=== PATIENT | male | born 1960 | race Caucasian/White ===

== ENCOUNTER 2016-05-11 21:04 | Emergency (ER) | payer OTHER ==
[~2016-05-11] VITALS: Ht 175.3 cm; Wt 75.0 kg
[~2016-05-11 21:04] MED LIST: ASPI81 PO; CEPH500C3 PO; CITA20 PO; NALT50TA PO; OMEP20TA39 PO; TAB-TAB PO
[2016-05-11 21:17] VITALS: BP 137/93; PULSE 129; RESP 20; TEMP 98.4; O2SAT 95
[2016-05-11] MEDS ORDERED: OMEP20CA2 (21:23)
[2016-05-11] MEDS ORDERED: FOLI5CAP PO (21:23)
[2016-05-11] MEDS ORDERED: ASPI81CH CHEW (21:23)
[2016-05-11] MEDS ORDERED: BLOOD THINNER (21:23)
[2016-05-11] MEDS ORDERED: NALT50TA3 PO (21:23)
[2016-05-11 21:40] VITALS: PULSE 101
[2016-05-11] MEDS ORDERED: SODIUM CHLOR 0.9% 1000 ML INJ 1,000 ML IV ONE (21:45)
[2016-05-11 22:20] LABS: AUTOMATED NEUTROPHIL # 2.2 TH/MM3 (1.8-7.7); EOSINOPHIL % 0.9 % (0.0-4.0); HEMATOCRIT 36.1 % (39.0-51.0); HEMO FLAGS DIFF FINAL; LYMPH % 31.2 % (9.0-44.0); LYMPHOCYTE # 1.2 TH/MM3 (1.0-4.8); MEAN CELL VOLUME 94.8 FL (80.0-100.0); MEAN CORPUSCULAR HEMOGLOBIN 33.1 PG (27.0-34.0); MONO % 11.5 % (0.0-8.0); NEUT % 55.4 % (16.0-70.0); PLATELET COUNT 146 TH/MM3 (150-450); RED CELL DISTRIBUTION WIDTH 14.1 % (11.6-17.2)
--- NOTE | 2016-05-11 22:39 | PD ---
HPI Chief Complaint: Psychiatric Symptoms Time Seen by Provider: 22:28 Travel History International Travel<30 days: No Contact w/Intl Traveler<30days: No Traveled to known affect area: No History of Present Illness HPI Patient is a 56-year-old male brought into the emergency Department under Lemus act for suicidal ideations. Patient states he was on the phone with his sister who became concerned about him subsequently calling the [place] [employer]. When the police arrived at the home he was staying in with his brother he did mention to them that he had thought about jumping off a bridge in [place]. Denies any previous suicide attempts. He does admit that he is getting from his and this is caused him stress. He states he' s been clean from alcohol for 2 years but did drink about 16 ounces of vodka today. PFSH Past Medical History Hx Anticoagulant Therapy: Yes ADD: Yes Cancer: No Cardiomyopathy: Yes (BICUSIP AORTIC VALVE) Cardiovascular Problems: Yes (aortic VALVE REPLACEMENT secondary to aortic stenosis) Diabetes: No Diminished Hearing: No Diverticulitis: Yes Endocrine: No Gastrointestinal Disorders: Yes (DIVERTICULITIES,ABDOMENAL PAIN,REFLUX) GERD: Yes Genitourinary: No Hepatitis: No Hiatal Hernia: No Hypertension: No Immune Disorder: No Implanted Vascular Access Dvce: No Medical other: No Musculoskeletal: No Neurologic: No Reproductive: No Respiratory: No Immunizations Current: Yes Thyroid Disease: No Influenza Vaccination: No Past Surgical History Abdominal Surgery: Yes (HERNIA) AICD: No Cardiac Surgery: Yes (AORTIC VALVE REPLACEMENT) Joint Replacement: No Pacemaker: No Tonsillectomy: Yes Other Surgery: Yes (ROTATOR CUFF REPAIR) Social History Alcohol Use: No (HX OF) Tobacco Use: Yes (1 PPD ) Substance Use: No Allergies-Medications (Allergen,Severity, Reaction): Coded Allergies: *MDRO Multi-Drug Resistant Organism (Verified Adverse Reaction, Unknown, ) MRSA PCR positive 04/08/2015 Reported Meds & Prescriptions Reported Meds & Active Scripts Active Reported [Blood Thinner] Naltrexone (Naltrexone HCl) 50 Mg Tab 25 Mg PO DAILY Folic Acid 5 Mg Cap 5 Mg PO Omeprazole 20 Mg Cap Aspirin 81 Mg Chew 81 Mg CHEW DAILY Review of Systems Except as stated in HPI: all other systems reviewed are Neg Psychiatric: Positive: Depression, Substance Abuse Physical Exam Narrative GENERAL: Well-developed, well-nourished, alert male. Resting comfortably in no acute distress. SKIN: Warm and dry. HEAD: Atraumatic. Normocephalic. EYES: Pupils equal and round. No scleral icterus. No injection or drainage. ENT: No nasal bleeding or discharge. Mucous membranes pink and moist. NECK: Trachea midline. No JVD. CARDIOVASCULAR: Tachycardic. 2/6 systolic murmur appreciated. RESPIRATORY: No accessory muscle use. Clear to auscultation. Breath sounds equal bilaterally. GASTROINTESTINAL: Abdomen soft, non-tender, nondistended. Hepatic and splenic margins not palpable. MUSCULOSKELETAL: No obvious deformities. No clubbing. No cyanosis. No edema. NEUROLOGICAL: Awake and alert. No obvious cranial nerve deficits. Motor grossly within normal limits. Normal speech. PSYCHIATRIC: Appropriate mood and affect; insight and judgment normal. Data Data Last Documented VS Vital Signs Date Time Temp Pulse Resp B/P Pulse Ox O2 Delivery O2 Flow Rate FiO2 05/12/16 08:04 97 18 05/12/16 06:05 146/97 96 Room Air 05/11/16 21:17 98.4 Orders Complete Blood Count With Diff (05/11/16 21:36) Comprehensive Metabolic Panel (05/11/16 21:36) Psych Screen (05/11/16 21:36) Drug Screen, Random Urine (05/11/16 21:36) Alcohol (Ethanol) (05/11/16 21:36) Magnesium (Mg) (05/11/16 21:36) Salicylates (Aspirin) (05/11/16 21:36) Tylenol (Acetaminophen) (05/11/16 21:36) Iv Access Insert/Monitor (05/11/16 21:36) Sodium Chlor 0.9% 1000 Ml Inj (Ns 1000 M (05/11/16 21:45) Potassium Chloride (Kcl) (05/11/16 23:45) Diet Regular Basic (05/12/16 Breakfast) Labs Laboratory Tests Test 05/11/16 22:00 White Blood Count 4.0 TH/MM3 Red Blood Count 3.80 MIL/MM3 Hemoglobin 12.6 GM/DL Hematocrit 36.1 % Mean Corpuscular Volume 94.8 FL Mean Corpuscular Hemoglobin 33.1 PG Mean Corpuscular Hemoglobin 35.0 % Concent Red Cell Distribution Width 14.1 % Platelet Count 146 TH/MM3 Mean Platelet Volume 7.7 FL Neutrophils (%) (Auto) 55.4 % Lymphocytes (%) (Auto) 31.2 % Monocytes (%) (Auto) 11.5 % Eosinophils (%) (Auto) 0.9 % Basophils (%) (Auto) 1.0 % Neutrophils # (Auto) 2.2 TH/MM3 Lymphocytes # (Auto) 1.2 TH/MM3 Monocytes # (Auto) 0.5 TH/MM3 Eosinophils # (Auto) 0.0 TH/MM3 Basophils # (Auto) 0.0 TH/MM3 CBC Comment DIFF FINAL Differential Comment Sodium Level 142 MEQ/L Potassium Level 3.1 MEQ/L Chloride Level 101 MEQ/L Carbon Dioxide Level 28.6 MEQ/L Anion Gap 12 MEQ/L Blood Urea Nitrogen 15 MG/DL Creatinine 0.90 MG/DL Estimat Glomerular Filtration 87 ML/MIN Rate Random Glucose 81 MG/DL Calcium Level 9.2 MG/DL Magnesium Level 1.9 MG/DL Total Bilirubin 0.5 MG/DL Aspartate Amino Transf 146 U/L (AST/SGOT) Alanine Aminotransferase 94 U/L (ALT/SGPT) Alkaline Phosphatase 76 U/L Total Protein 7.1 GM/DL Albumin 3.8 GM/DL Salicylates Level 3.2 MG/DL Urine Opiates Screen POS Acetaminophen Level LESS THAN 2.0 MCG/ML Urine Barbiturates Screen NEG Urine Amphetamines Screen NEG Urine Benzodiazepines Screen NEG Urine Cocaine Screen NEG Urine Cannabinoids Screen NEG Ethyl Alcohol Level 198 MG/DL MDM Medical Decision Making Medical Screen Exam Complete: Yes Emergency Medical Condition: Yes Interpretation(s) Vital Signs Date Time Temp Pulse Resp B/P Pulse Ox O2 Delivery O2 Flow Rate FiO2 05/11/16 21:40 101 05/11/16 21:17 98.4 129 20 137/93 95 Differential Diagnosis Electrolyte abnormality versus acute intoxication versus depression versus suicidal ideations versus cardiac arrhythmia versus other Narrative Course Patient is a 56-year-old male brought in under Lemus act for suicidal ideations. Patient is currently denying such. He does admit to drinking 16 ounces of vodka today, he denies any consistent alcohol or drug use. Tachycardic on arrival, his heart rate has trended down to the low 100s. Labs and IV fluids ordered, psychiatric screen pending. Care of patient transferred to Kenan RSOAS who will determine patient's disposition. Donna Mcnamara May 11, 2016 22:39
[2016-05-11 22:41] LABS: AMPHETAMINE, URINE NEG (NEG); BARBITURATES, URINE NEG (NEG); COCAINE, URINE NEG (NEG)
[2016-05-11 23:00] LABS: ANION GAP 12 MEQ/L (5-15)
[2016-05-11 23:04] LABS: ACETAMINOPHEN LESS THAN 2.0 MCG/ML (10.0-30.0); ALKALINE PHOSPHATASE 76 U/L (45-117); ALT (GPT) 94 U/L (12-78); AST (GOT) 146 U/L (15-37); BICARBONATE 28.6 MEQ/L (21.0-32.0); BLOOD UREA NITROGEN 15 MG/DL (7-18); CHLORIDE 101 MEQ/L (98-107); GLOMERULAR FILTRATION RATE 87 ML/MIN (>89); MAGNESIUM 1.9 MG/DL (1.5-2.5); POTASSIUM 3.1 MEQ/L (3.5-5.1); SODIUM (NA) 142 MEQ/L (136-145); TOTAL BILIRUBIN ADULT 0.5 MG/DL (0.2-1.0)
--- NOTE | 2016-05-11 23:37 | PD ---
Physical Exam Narrative Patient was signed out to me by Donna BOND, pending labs. Please see her documentation for full H&P. Data Data Last Documented VS Vital Signs Date Time Temp Pulse Resp B/P Pulse Ox O2 Delivery O2 Flow Rate FiO2 05/11/16 21:40 101 05/11/16 21:17 98.4 20 137/93 95 Orders Complete Blood Count With Diff (05/11/16 21:36) Comprehensive Metabolic Panel (05/11/16 21:36) Psych Screen (05/11/16 21:36) Drug Screen, Random Urine (05/11/16 21:36) Alcohol (Ethanol) (05/11/16 21:36) Magnesium (Mg) (05/11/16 21:36) Salicylates (Aspirin) (05/11/16 21:36) Tylenol (Acetaminophen) (05/11/16 21:36) Iv Access Insert/Monitor (05/11/16 21:36) Sodium Chlor 0.9% 1000 Ml Inj (Ns 1000 M (05/11/16 21:45) Potassium Chloride (Kcl) (05/11/16 23:45) Labs Laboratory Tests Test 05/11/16 22:00 White Blood Count 4.0 TH/MM3 Red Blood Count 3.80 MIL/MM3 Hemoglobin 12.6 GM/DL Hematocrit 36.1 % Mean Corpuscular Volume 94.8 FL Mean Corpuscular Hemoglobin 33.1 PG Mean Corpuscular Hemoglobin 35.0 % Concent Red Cell Distribution Width 14.1 % Platelet Count 146 TH/MM3 Mean Platelet Volume 7.7 FL Neutrophils (%) (Auto) 55.4 % Lymphocytes (%) (Auto) 31.2 % Monocytes (%) (Auto) 11.5 % Eosinophils (%) (Auto) 0.9 % Basophils (%) (Auto) 1.0 % Neutrophils # (Auto) 2.2 TH/MM3 Lymphocytes # (Auto) 1.2 TH/MM3 Monocytes # (Auto) 0.5 TH/MM3 Eosinophils # (Auto) 0.0 TH/MM3 Basophils # (Auto) 0.0 TH/MM3 CBC Comment DIFF FINAL Differential Comment Sodium Level 142 MEQ/L Potassium Level 3.1 MEQ/L Chloride Level 101 MEQ/L Carbon Dioxide Level 28.6 MEQ/L Anion Gap 12 MEQ/L Blood Urea Nitrogen 15 MG/DL Creatinine 0.90 MG/DL Estimat Glomerular Filtration 87 ML/MIN Rate Random Glucose 81 MG/DL Calcium Level 9.2 MG/DL Magnesium Level 1.9 MG/DL Total Bilirubin 0.5 MG/DL Aspartate Amino Transf 146 U/L (AST/SGOT) Alanine Aminotransferase 94 U/L (ALT/SGPT) Alkaline Phosphatase 76 U/L Total Protein 7.1 GM/DL Albumin 3.8 GM/DL Salicylates Level 3.2 MG/DL Urine Opiates Screen POS Acetaminophen Level LESS THAN 2.0 MCG/ML Urine Barbiturates Screen NEG Urine Amphetamines Screen NEG Urine Benzodiazepines Screen NEG Urine Cocaine Screen NEG Urine Cannabinoids Screen NEG Ethyl Alcohol Level 198 MG/DL MDM Supervised Visit with PIYUSH: No Narrative Course Patient was seen and examined. Labs were obtained and reviewed. Patient potassium was replaced orally. Patient medically cleared for further treatment and evaluation by psych. Final disposition per psych. Diagnosis Primary Impression: Alcohol intoxication Qualified Code: F10.120 - Alcohol intoxication, uncomplicated Additional Impression: Hypokalemia Condition: Stable Madhav Tafoya May 11, 2016 23:37
[2016-05-11] MEDS ORDERED: POTASSIUM CHLORIDE 20 MEQ CONTROLLED RELEASE TAB PO ONE (23:45)
[2016-05-12 02:46] VITALS: BP 122/78; PULSE 103; RESP 18; O2SAT 97
[2016-05-12 06:05] VITALS: BP 146/97; PULSE 97; RESP 18; O2SAT 96
--- NOTE | 2016-05-12 09:48 | PD ---
History of Present Illness Chief Complaint: Psychiatric Symptoms Time Seen by Provider: 09:30 Travel History International Travel<30 Days: No Contact w/Intl Traveler<30days: No Known affected area: No Legal Status Legal Status: [employer] Act History of Present Illness: History of Present Illness HPI Patient is a 56-year-old male with no previous psychiatric history who presents to D under Lemus act initiated by DIPESH . As per the report " Grupo is going thru a divorce and mentally unstable. He advised he was thinking about jumping off a bridge to kill himself". Patient presents with BAL of 198 and reports that he has been drinking vodka for the past 2 days after a 2 year period of sobriety. He goes on to say that in the past 10 days he from his and was living at a hotel until his credit card was maxed. he then moved in with his brother who has CP and he had some disagreements with his siblings regarding the care of the brother who has CP. He minimizes his drinking at the time and states that when the police asked him how he was feeling " I said I could just jump off a bridge. The minute I said it I wanted to take it back because I did not mean it. It was an off the cuff comment". The patient has been monitored in [facility] and as per nursing report has presented no behavioral concerns and no suicidality. As per record review no previous contact with [facility] psychiatry dept. This morning he is awake, alert and oriented. dressed in [facility]. He is clinically sober and there is no symptoms of withdrawal. Speech is clear and logical. There is no indication of any thought content or process disturbance. Mood is euthymic. No leroy. He relates his recent difficulties with his marriage but is seeing a therapist once a week as well as seeing an reimbursement specialist. He denies any suicidal or homicidal ideation, intent or plan. He is future oriented. States " I have a granddaughter that I love and my youngest son is having a baby as well soon. I wouldn't do anything stupid. PFSH Past Medical History Hx Anticoagulant Therapy: Yes ADD: Yes Cancer: No Cardiomyopathy: Yes (BICUSIP AORTIC VALVE) Cardiovascular Problems: Yes (aortic VALVE REPLACEMENT secondary to aortic stenosis) Diabetes: No Diminished Hearing: No Diverticulitis: Yes Endocrine: No Gastrointestinal Disorders: Yes (DIVERTICULITIES,ABDOMENAL PAIN,REFLUX) GERD: Yes Genitourinary: No Hepatitis: No Hiatal Hernia: No Hypertension: No Immune Disorder: No Implanted Vascular Access Dvce: No Medical other: No Musculoskeletal: No Neurologic: No Reproductive: No Respiratory: No Immunizations Current: Yes Thyroid Disease: No Influenza Vaccination: No Past Surgical History Abdominal Surgery: Yes (HERNIA) AICD: No Cardiac Surgery: Yes (AORTIC VALVE REPLACEMENT) Joint Replacement: No Pacemaker: No Tonsillectomy: Yes Other Surgery: Yes (ROTATOR CUFF REPAIR) Psychiatric History Psychiatric History Hx Psychiatric Treatment: HX OF ADD History of Inpatient Treatment: No Guns or firearms in home: No Social History male. has been x32 years. has 2 adult children. Completed college. Currently unemployed. Had been living with his brother. Hx Alcohol Use: Yes (HX OF) Hx Tobacco Use: Yes (1 PPD ) Hx Substance Use: Yes Substance Use Type: Alcohol, Prescription Medications, Synth Opiates-Pain Pills Hx of Substance Use Treatment: Yes (SMA. Involved in AA. ) Family Psychiatric History None reported Allergies-Medications (Allergen,Severity, Reaction): Coded Allergies: *MDRO Multi-Drug Resistant Organism (Verified Adverse Reaction, Unknown, ) MRSA PCR positive 04/08/2015 Reported Meds & Prescriptions Reported Meds & Active Scripts Active Reported [Blood Thinner] Naltrexone (Naltrexone HCl) 50 Mg Tab 25 Mg PO DAILY Folic Acid 5 Mg Cap 5 Mg PO Omeprazole 20 Mg Cap Aspirin 81 Mg Chew 81 Mg CHEW DAILY Review of Systems Constitutional: DENIES: Diaphoretic episodes, Fatigue, Fever, Weight gain, Weight loss, Chills, Dizziness, Change in appetite, Night Sweats Endocrine: DENIES: Heat/cold intolerance, Polydipsia, Polyuria, Polyphagia Eyes: DENIES: Blurred vision, Diplopia, Eye inflammation, Eye pain, Vision loss , Photosensitivity, Double Vision Ears, nose, mouth, throat: DENIES: Tinnitus, Hearing loss, Vertigo, Nasal discharge, Oral lesions, Throat pain, Hoarseness, Ear Pain, Running Nose, Epistaxis, Sinus Pain, Toothache, Odynophagia Respiratory: DENIES: Apneas, Cough, Snoring, Wheezing, Hemoptysis, Sputum production, Shortness of breath Cardiovascular: DENIES: Chest pain, Palpitations, Syncope, Dyspnea on Exertion , PND, Lower Extremity Edema, Orthopnea, Claudication Gastrointestinal: COMPLAINS OF: Abdominal pain Genitourinary: DENIES: Sexual dysfunction, Urinary frequency, Urinary incontinence, Urgency, Hematuria, Dysuria, Nocturia, Penile Discharge, Testicular Pain, Testicular Swelling Musculoskeletal: DENIES: Joint pain, Muscle aches, Stiffness, Joint Swelling, Back pain, Neck pain Integumentary: DENIES: Abnormal pigmentation, Nail changes, Pruritus, Rash Hematologic/lymphatic: DENIES: Bruising, Lymphadenopathy Immunologic/allergic: DENIES: Eczema, Urticaria Psychiatric: DENIES: Anxiety, Confusion, Mood changes, Depression, Hallucinations, Agitation, Suicidal Ideation, Homicidal Ideation, Delusions Exam Alert: Yes [place]: Person (ox4) Mood: Calm Affect: Euthymic Speech: Clear, Logical Eye Contact: Normal Memory Intact: Comment (no impairmetn) Hallucinations: Other (negative) Delusions: No Suicidal: Ideation (denies any) Homicidal: Ideation (denies any) Insight/Judgement Fair . Not impaired. MDM Medical Decision Making Medical Record Reviewed: Yes Assessment/Plan 56 year old male with hx of alcohol dependence who after 2 years of sobriety relapsed x 2 days. While intoxicated he made a comment to DIPESH that eluded to suicidality. The patient has no suicidal ideation, no previous suicidal ideation or intent. At this time and sober he is denying any suicidal or homicidal ideation, intent or plan. he is future oriented and has adequate protective factors in place. He has an outpatient therapist as wel as an reimbursement specialist he is seeing as well. He does not meet BA criteria nor does he present any psychiatric symptomatology at this time Lift BA. Counseled re abstinence , recovery and AA.. Orders Complete Blood Count With Diff (05/11/16 21:36) Comprehensive Metabolic Panel (05/11/16 21:36) Psych Screen (05/11/16 21:36) Drug Screen, Random Urine (05/11/16 21:36) Alcohol (Ethanol) (05/11/16 21:36) Magnesium (Mg) (05/11/16 21:36) Salicylates (Aspirin) (05/11/16 21:36) Tylenol (Acetaminophen) (05/11/16 21:36) Iv Access Insert/Monitor (05/11/16 21:36) Sodium Chlor 0.9% 1000 Ml Inj (Ns 1000 M (05/11/16 21:45) Potassium Chloride (Kcl) (05/11/16 23:45) Diet Regular Basic (05/12/16 Breakfast) Results Vital Signs Date Time Temp Pulse Resp B/P Pulse Ox O2 Delivery O2 Flow Rate FiO2 05/12/16 08:04 97 18 05/12/16 06:05 97 18 146/97 96 Room Air 05/12/16 02:46 103 18 122/78 97 Room Air 05/11/16 21:40 101 05/11/16 21:17 98.4 129 20 137/93 95 Laboratory Tests Test 05/11/16 22:00 White Blood Count 4.0 Red Blood Count 3.80 Hemoglobin 12.6 Hematocrit 36.1 Mean Corpuscular Volume 94.8 Mean Corpuscular Hemoglobin 33.1 Mean Corpuscular Hemoglobin 35.0 Concent Red Cell Distribution Width 14.1 Platelet Count 146 Mean Platelet Volume 7.7 Neutrophils (%) (Auto) 55.4 Lymphocytes (%) (Auto) 31.2 Monocytes (%) (Auto) 11.5 Eosinophils (%) (Auto) 0.9 Basophils (%) (Auto) 1.0 Neutrophils # (Auto) 2.2 Lymphocytes # (Auto) 1.2 Monocytes # (Auto) 0.5 Eosinophils # (Auto) 0.0 Basophils # (Auto) 0.0 CBC Comment DIFF FINAL Differential Comment Sodium Level 142 Potassium Level 3.1 Chloride Level 101 Carbon Dioxide Level 28.6 Anion Gap 12 Blood Urea Nitrogen 15 Creatinine 0.90 Estimat Glomerular Filtration 87 Rate Random Glucose 81 Calcium Level 9.2 Magnesium Level 1.9 Total Bilirubin 0.5 Aspartate Amino Transf 146 (AST/SGOT) Alanine Aminotransferase 94 (ALT/SGPT) Alkaline Phosphatase 76 Total Protein 7.1 Albumin 3.8 Salicylates Level 3.2 Urine Opiates Screen POS Acetaminophen Level LESS THAN 2.0 Urine Barbiturates Screen NEG Urine Amphetamines Screen NEG Urine Benzodiazepines Screen NEG Urine Cocaine Screen NEG Urine Cannabinoids Screen NEG Ethyl Alcohol Level 198 Diagnosis Primary Impression: Alcohol intoxication Additional Impressions: Alcohol-induced mood disorder Alcohol abuse Psychiatrically Cleared: Yes Med/ Other Pt Specific Info: No Meds Exist/No RX given Disposition: 01 DISCHARGE HOME Condition: Stable Problem Qualifiers Primary Impression: Alcohol intoxication Qualified Code: F10.120 - Alcohol intoxication, uncomplicated Caron Cardoza May 12, 2016 09:48
== END 2016-05-12 11:00 | disposition home or self-care (01) ==
LOC: NEPA 21:04 → NEPJ 05-12 11:00
DX: F10.120 Alcohol abuse with intoxication, uncomplicated (principal); F10.94 Alcohol use, unspecified with alcohol-induced mood disorder; E87.6 Hypokalemia; R00.0 Tachycardia, unspecified; F17.200 Nicotine dependence, unspecified, uncomplicated; Z79.01 Long term (current) use of anticoagulants; Z86.79 Personal history of other diseases of the circulatory system; Z87.19 Personal history of other diseases of the digestive system
CPT/HCPCS: 80053; 80307; 80320; 80329; 83735; 85025; G0480